=== PATIENT | male | born 2000 | race Caucasian/White ===

== ENCOUNTER 2018-11-13 18:53 | Emergency (ER) | payer OTHER, BC ==
[2017-03-06 09:05] VITALS: Wt 59.0 kg
[~2018-11-13 18:53] MED LIST: NO RTN MEDS; PANT40SU3 PO; RANI-886 PO
--- NOTE | 2018-11-13 18:56 | ER Report ---
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 Patient is neurovascularly intact in the distal extremities capillary refill less than 2 seconds. Patient denies head or neck pain, chest pain, shortness breath, abdominal pain, nausea, vomiting. REVIEW OF SYSTEMS: Constitutional: No fever, no chills. Musculoskeletal: Right distal wrist pain, mid hand pain no obvious bony deformities Skin: No rashes. Neurological: Neurovascular exam intact in the distal extremity, capillary refill less than 2 seconds Allergies: Coded Allergies: albuterol (Verified Allergy, Severe, AIRWAY OBSTRUCTION, 03/14/17) Home Meds Reported Medications Pantoprazole Sodium (PROTONIX) 40 Mg Granpkt.dr, 40 MG PO QDAY, PACK 03/05/17 Hx Smoking: No Smoking Status: Former Smoker Exposure to Second Hand Smoke?: Yes Hx Substance Use Disorder: No Hx Alcohol Use: No Constitutional Vital Sign - Last 24 Hours 11/13/18 18:57 Temp 99.4 Pulse 63 Resp 16 B/P (MAP) 124/64 Pulse Ox 96 O2 Delivery Room Air Physical Exam General Appearance: The patient is alert, has no immediate need for airway protection and no signs of toxicity. Uncomfortable appearing Neurological: Neurovascular exam intact in distal extremities with capillary refill less than 2 seconds Skin: Warm and dry, no rashes. Musculoskeletal: Tenderness on palpation of the distal ventral wrist, mid hand on the dorsal and ventral aspects without significant bony deformity DIFFERENTIAL DIAGNOSIS: After history and physical exam differential diagnosis was considered for sprain, fracture, dislocation, contusion Medical Decision Making EKG/Imaging Imaging PATIENT NAME: Brandon Kennedy : 2000 MR: [id number] V: [id number] EXAM DATE: ORDERING PHYSICIAN: JIMENA MARMOLEJO TECHNOLOGIST: Location: [facility] Patient: Brandon Kennedy : 2000 Visit/Account:[id number] Date of Sevice: 11/13/2018 Technique: HAND LIMITED RIGHT HISTORY: FOOSH Comparison studies: None FINDINGS: There is no acute fracture. The alignment of the right hand is preserved. Soft tissues are unremarkable. IMPRESSION: 1. No acute osseous process within the right hand. PATIENT NAME: Brandon Kennedy : 2000 MR: [id number] V: [id number] EXAM DATE: ORDERING PHYSICIAN: JIMENA MARMOLEJO TECHNOLOGIST: Location: [facility] Patient: Brandon Kennedy : 2000 Visit/Account:[id number] Date of Sevice: 11/13/2018 Technique: XR WRIST 3 OR MORE VIEWS RT HISTORY: FOOSH Comparison studies: None FINDINGS: There is no acute fracture. The alignment of the right wrist is preserved. Soft tissues are unremarkable. IMPRESSION: 1. No acute osseous process within the right wrist. ED Course/Re-evaluation ED Course Patient is a 18-year-old male here with complaints of a FOOSH with tenderness on the right distal wrist and hand after falling off of a scaffolding, landing on a ladder at approximately 1500 this afternoon while at work. Patient is neurovascularly intact at time of evaluation with no obvious bony deformity, capillary refill less than 2 seconds in distal digits. X-ray imaging was completed of the wrist and hand. Patient was given Toradol 30 mg IM. Decision to Disposition Date: Nov 13, 2018 Decision to Disposition Time: 19:57 Depart Departure Latest Vital Signs Vital Signs Date Time Temp Pulse Resp B/P (MAP) Pulse Ox O2 Delivery O2 Flow Rate FiO2 11/13/18 18:57 99.4 63 16 124/64 96 Room Air Impression: Primary Impression: Right wrist sprain Condition: Improved Disposition: HOME OR SELF-CARE New Scripts Tramadol Hcl (TRAMADOL HCL) 50 Mg Tablet 50 MG PO Q6H PRN for PAIN, #12 TAB 0 Refills Prov: JIMENA MARMOLEJO DO 11/13/18 Patient Instructions: Wrist Sprain (GEN) Additional Instructions: No acute fracture was identified on x-ray imaging. Please keep your wrist in a brace, follow-up with orthopedics in one week. Please return promptly if you develop numbness, worsening pain, increased swelling. You may take 1 tramadol every 6-8 hours as needed for breakthrough pain control. Consider using ibuprofen, naproxen or Tylenol as primary pain control. Please follow-up with your primary care provider in the next week. JIMENA MARMOLEJO DO Nov 13, 2018 18:56
[2018-11-13 18:57] VITALS: BP 124/64
[2018-11-13] MEDS ORDERED: KETOROLAC 30 MG/ML VIAL IM ONE (19:05)
--- NOTE | 2018-11-13 19:42 | RADIOLOGY IMAGING REPORT ---
FACILITY: [facility] [place] PATIENT NAME: Brandon Kennedy : 2000 MR: [id number] V: [id number] EXAM DATE: ORDERING PHYSICIAN: JIMENA MARMOLEJO TECHNOLOGIST: Location: [facility] Patient: Brandon Kennedy : 2000 Visit/Account:[id number] Date of Sevice: 11/13/2018 Technique: XR WRIST 3 OR MORE VIEWS RT HISTORY: FOOSH Comparison studies: None FINDINGS: There is no acute fracture. The alignment of the right wrist is preserved. Soft tissues are unremarkable. IMPRESSION: 1. No acute osseous process within the right wrist. Report Dictated By: Paresh Damon DO at 11/13/2018 7:36 PM Report E-Signed By: Paresh Damon DO at 11/13/2018 7:37 PM WSN:[id number]
--- NOTE | 2018-11-13 19:44 | RADIOLOGY IMAGING REPORT ---
FACILITY: [facility] PATIENT NAME: Brandon Kennedy : 2000 MR: [id number] V: [id number] EXAM DATE: ORDERING PHYSICIAN: JIMENA MARMOLEJO TECHNOLOGIST: Location: [facility] [place] Patient: Brandon Kennedy : 2000 Visit/Account:[id number] Date of Sevice: 11/13/2018 Technique: HAND LIMITED RIGHT HISTORY: FOOSH Comparison studies: None FINDINGS: There is no acute fracture. The alignment of the right hand is preserved. Soft tissues are unremarkable. IMPRESSION: 1. No acute osseous process within the right hand. Report Dictated By: Paresh Daomn DO at 11/13/2018 7:37 PM Report E-Signed By: Paresh Damon DO at 11/13/2018 7:39 PM WSN:[id number]
[2018-11-13] MEDS ORDERED: TRAM-420 PO (20:01)
== END 2018-11-13 20:15 | disposition home or self-care (01) ==
LOC: ER 19:06
DX: S63.501A Unspecified sprain of right wrist, initial encounter (principal); W17.89XA Other fall from one level to another, initial encounter
CPT/HCPCS: 73110; 73120; 99284; L3908